=== PATIENT | female | born 1970 | race Caucasian/White ===

== ENCOUNTER 2020-08-27 21:16 | Inpatient (IN) | payer BC, OTHER ==
[~2020-08-27] VITALS: Ht 170 cm; Wt 127.7 kg
[2020-08-27] MEDS ORDERED: LABETALOL HCL 20 MG/4 ML VIAL IV ONE (22:00)
--- NOTE | 2020-08-27 22:08 | ED Headache ---
General Chief Complaint: Head/Cervical Problems Stated Complaint: HEADACHE/DIARRHEA Nursing Triage Note: PT AMBULATE TO ROOM 10 WITH C/O HEADACHE AND DIARRHEA STARTING AT 2015 TODAY. PT REPORTS THAT THE HEADACHE IS WHAT BROUGHT HER TO THE ED TONIGHT. Nursing Sepsis Screen: No Definite Risk Source: patient Exam Limitations: no limitations History of Present Illness Date Seen by Provider: Aug 27, 2020 Time Seen by Provider: 22:00 Initial Comments Patient is a 49-year-old female who presents to the emergency department today with a chief complaint of severe occipital headache as well as some diarrhea this evening. Patient states that she was going to the bathroom earlier this evening and had a sudden onset of occipital headache that she describes as the worst headache of her life. Patient states that it's not quite as bad now but it is still the worst headache she is ever had she rates it as "an 8". Patient doesn't usually have headaches. Patient doesn't usually have any diagnosed medical problems. She doesn't see doctors on a regular basis. She denies any problems with vision. Nothing makes the headache any better or worse. No hearing changes. No speech difficulties no strokelike symptoms. Patient denies chest pains or palpitations or shortness of breath. She denies any black or bloody stools. Patient thinks that she just ate something she shouldn't have and that caused the diarrhea. No recent illnesses, fevers, chills, cough congestion or Covid related exposures. All other review of systems reviewed and negative except as stated. Timing/Duration: 1-3 hours Severity/Quality: severe, pressure, sharp, throbbing Location: occipital Prior Headaches/Recent Trauma: no recent headache/trauma Associated Symptoms: denies symptoms Allergies and Home Medications Allergies Coded Allergies: No Allergy Information Available (Unverified , 06/22/15) Patient Home Medication List Home Medication List Reviewed: Yes Review of Systems Review of Systems Constitutional: see HPI Eyes: No Symptoms Reported Ears, Nose, Mouth, Throat: no symptoms reported Respiratory: no symptoms reported Cardiovascular: no symptoms reported Gastrointestinal: diarrhea Genitourinary: no symptoms reported : No Musculoskeletal: no symptoms reported Skin: no symptoms reported Psychiatric/Neurological: Anxiety All Other Systems Reviewed Negative Unless Noted: Yes Past Sxuzcgt-Yxlyui-Maaaxz Hx Patient Social History Alcohol Use: Occasionally Uses Recreational Drug Use: No Smoking Status: Never a Smoker 2nd Hand Smoke Exposure: No Recent Foreign Travel: No Contact w/Someone Who Travel: No Recent Infectious Disease Expo: No Recent Hopitalizations: No Physical Abuse: No Sexual Abuse: No Mistreated: No Fear: No Seasonal Allergies Seasonal Allergies: Yes Past Medical History Surgeries: Yes Hysterectomy Respiratory: No Cardiac: No Neurological: No Genitourinary: No Gastrointestinal: No Musculoskeletal: Yes (LEFT ORBITAL FX, LEFT LEG, LEFT COLLAR BONE) Fractures HEENT: No Cancer: No Psychosocial: No Integumentary: No Blood Disorders: No Physical Exam Vital Signs Vital Signs - First Documented 08/27/20 21:35 Temp 35.9 Pulse 99 Resp 18 B/P (MAP) 252/162 (192) O2 Delivery Room Air Capillary Refill : Less Than 3 Seconds Height, Weight, BMI Height: '" Weight: lbs. oz. kg; 43.00 BMI Method: General Appearance: WD/WN, moderate distress HEENT: PERRL/EOMI Neck: full range of motion Cardiovascular: regular rate, rhythm, no murmur Respiratory: lungs clear, normal breath sounds, no respiratory distress, no accessory muscle use Gastrointestinal: non tender, soft Extremities: non-tender, normal inspection, no pedal edema, normal capillary refill Psychiatric: alert, oriented x 3, other (anxious) Crainal Nerves: normal hearing, normal speech, PERRL Coordination/Gait: normal finger to nose Motor/Sensory: no motor deficit, no sensory deficit Skin: normal color, warm/dry Progress/Results/Core Measures Results/Orders Lab Results Laboratory Tests Test 08/27/20 22:00 Range/Units White Blood Count 9.2 4.3-11.0 10^3/uL Red Blood Count 5.20 H 3.80-5.11 10^6/uL Hemoglobin 14.1 11.5-16.0 g/dL Hematocrit 42 35-52 % Mean Corpuscular Volume 81 80-99 fL Mean Corpuscular Hemoglobin 27 25-34 pg Mean Corpuscular Hemoglobin Concent 33 32-36 g/dL Red Cell Distribution Width 13.5 10.0-14.5 % Platelet Count 210 130-400 10^3/uL Mean Platelet Volume 9.4 9.0-12.2 fL Immature Granulocyte % (Auto) 0 % Neutrophils (%) (Auto) 61 42-75 % Lymphocytes (%) (Auto) 28 12-44 % Monocytes (%) (Auto) 6 0-12 % Eosinophils (%) (Auto) 4 0-10 % Basophils (%) (Auto) 1 0-10 % Neutrophils # (Auto) 5.6 1.8-7.8 10^3/uL Lymphocytes # (Auto) 2.6 1.0-4.0 10^3/uL Monocytes # (Auto) 0.6 0.0-1.0 10^3/uL Eosinophils # (Auto) 0.3 0.0-0.3 10^3/uL Basophils # (Auto) 0.1 0.0-0.1 10^3/uL Immature Granulocyte # (Auto) 0.0 0.0-0.1 10^3/uL Sodium Level 138 135-145 MMOL/L Potassium Level 4.6 3.6-5.0 MMOL/L Chloride Level 101 98-107 MMOL/L Carbon Dioxide Level 26 21-32 MMOL/L Anion Gap 11 5-14 MMOL/L Blood Urea Nitrogen 16 7-18 MG/DL Creatinine 1.25 0.60-1.30 MG/DL Estimat Glomerular Filtration Rate 46 BUN/Creatinine Ratio 13 Glucose Level 270 H 70-105 MG/DL Calcium Level 9.6 8.5-10.1 MG/DL Corrected Calcium 9.4 8.5-10.1 MG/DL Total Bilirubin 0.5 0.1-1.0 MG/DL Aspartate Amino Transf (AST/SGOT) 19 5-34 U/L Alanine Aminotransferase (ALT/SGPT) 20 0-55 U/L Alkaline Phosphatase 80 40-136 U/L Total Creatine Kinase 95 29-168 U/L Creatine Kinase MB 1.0 <6.6 NG/ML Troponin I < 0.028 <0.028 NG/ML Total Protein 7.9 6.4-8.2 GM/DL Albumin 4.3 3.2-4.5 GM/DL Thyroid Stimulating Hormone (TSH) 3.56 0.35-4.94 UIU/ML My Orders Orders - QUEENIE KWOK MD Ed Iv/Invasive Line Start (08/27/20 21:53) Cbc With Automated Diff (08/27/20 21:53) Comprehensive Metabolic Panel (08/27/20 21:53) Ua Culture If Indicated (08/27/20 21:53) Ekg Tracing (08/27/20 21:53) Troponin I (08/27/20 21:53) Creatine Kinase (08/27/20 21:53) Creatine Kinase Mb (08/27/20 21:53) Chest 1 View, Ap/Pa Only (08/27/20 21:53) Ct Head Wo (08/27/20 21:53) Labetalol Injection (Normodyne Injection (08/27/20 22:00) Thyroid Stimulating Hormone (08/27/20 21:55) Nicardipine Drip (08/27/20 23:15) Medications Given in ED Current Medications Medications Dose Ordered Sig/Loli Route Start Time Stop Time Status Last Admin Dose Admin Labetalol HCl 10 mg ONCE ONCE IV 08/27/20 22:00 08/27/20 22:01 DC 08/27/20 22:03 10 MG Vital Signs/I&O 08/27/20 21:35 Temp 35.9 Pulse 99 Resp 18 B/P (MAP) 252/162 (192) O2 Delivery Room Air Blood Pressure Mean: 192 Progress Progress Note : Time: 22:15 Progress Note 49-year-old presents with a chief complaint of severe headache and diarrhea. Evaluation today includes a physical exam. The patient is noted to be extremely hypertensive at 260s over 140s. Patient is undergoing laboratory evaluation to include a CBC, Chem-12, cardiac enzyme profile, urinalysis, TSH, EKG chest x-ray and CT scan of the head without contrast. 2321 Patient's blood pressures down to 203/108, labs have been reviewed and are all within normal limits except for a blood sugar of 270. Chest x-ray shows normal mediastinal structures, no effusions or infiltrates. CT scan of the brain shows no acute findings. Patient will be admitted to the hospitalist service on a Cardene drip to the ICU. Initial ECG Impression Date: Aug 27, 2020 Initial ECG Impression Time: 21:59 Initial ECG Rate: 87 Initial ECG Rhythm: Normal Sinus Initial ECG Impression: Nonspecific Changes Comment left axis deviation; poor r wave progression Departure Impression Primary Impression: Hypertensive urgency, malignant Disposition: ADMITTED INPATIENT Condition: Stable Departure-Patient Inst. Referrals: ALLYSON DIAS DO (PCP) Primary Care Physician QUEENIE KWOK MD Aug 27, 2020 22:08
[2020-08-27 22:10] LABS: BASOPHILS # (AUTO) 0.1 10^3/uL (0.0-0.1); BASOPHILS % (AUTO) 1 % (0-10); EOSINOPHILS # (AUTO) 0.3 10^3/uL (0.0-0.3); EOSINOPHILS % (AUTO) 4 % (0-10); HEMATOCRIT 42 % (35-52); HEMOGLOBIN 14.1 g/dL (11.5-16.0); LYMPHOCYTES # (AUTO) 2.6 10^3/uL (1.0-4.0); LYMPHOCYTES % (AUTO) 28 % (12-44); MEAN CORPUSCULAR HEMOGLOBIN 27 pg (25-34); MEAN CORPUSCULAR HGB CONC 33 g/dL (32-36); MEAN CORPUSCULAR VOLUME 81 fL (80-99); MEAN PLATELET VOLUME 9.4 fL (9.0-12.2); MONOCYTES # (AUTO) 0.6 10^3/uL (0.0-1.0); MONOCYTES % (AUTO) 6 % (0-12); NEUTROPHILS # (AUTO) 5.6 10^3/uL (1.8-7.8); NEUTROPHILS % (AUTO) 61 % (42-75); PLATELET COUNT 210 10^3/uL (130-400); WHITE BLOOD COUNT 9.2 10^3/uL (4.3-11.0)
[2020-08-27 22:28] LABS: ALBUMIN 4.3 GM/DL (3.2-4.5); CHLORIDE 101 MMOL/L (98-107); POTASSIUM 4.6 MMOL/L (3.6-5.0); SODIUM 138 MMOL/L (135-145)
[2020-08-27 22:29] LABS: CALCIUM 9.6 MG/DL (8.5-10.1)
[2020-08-27 22:31] LABS: GLUCOSE 270 MG/DL (70-105); TOTAL PROTEIN 7.9 GM/DL (6.4-8.2)
[2020-08-27 22:32] LABS: BILIRUBIN,TOTAL 0.5 MG/DL (0.1-1.0); CARBON DIOXIDE 26 MMOL/L (21-32)
[2020-08-27 22:34] LABS: ALKALINE PHOSPHATASE 80 U/L (40-136); CREATININE SERUM 1.25 MG/DL (0.60-1.30); GFR ESTIMATED 46
[2020-08-27 22:35] LABS: BUN/CREATININE RATIO 13
[2020-08-27 22:37] LABS: ALANINE AMINOTRANSFERASE 20 U/L (0-55); CREATINE KINASE 95 U/L (29-168)
[2020-08-27] MEDS ORDERED: niCARdipine IV 50 MG in NS (IVPB) 230 ML IV SCH (23:15)
[2020-08-27] MEDS ORDERED: niCARdipine IV FOR DRIP 50 MG KIT ONE ×2 (23:17→23:21)
[2020-08-27] MEDS ORDERED: NS (IVPB) 250 ML ONE (23:18)
[2020-08-28] MEDS ORDERED: NS IV 1000 ML 1,000 ML ONE (00:30)
[2020-08-28] MEDS ORDERED: NS IV 1000 ML 1,000 ML IV SCH (01:00)
[2020-08-28 01:01] LABS: BILIRUBIN,URINE NEGATIVE (NEGATIVE); CLARITY,URINE CLEAR; COLOR,URINE YELLOW; GLUCOSE, URINE (UA) 3+ (NEGATIVE); KETONES,URINE NEGATIVE (NEGATIVE); LEUKOCYTE ESTERASE ,URINE NEGATIVE (NEGATIVE); NITRITE,URINE NEGATIVE (NEGATIVE); PROTEIN,URINE NEGATIVE (NEGATIVE)
[2020-08-28] MEDS: niCARdipine 50 MG/NS 250 ML IV DRIP IV SCH ×6 (01:08→19:22)
[2020-08-28 02:01] LABS: BACTERIA,URINE NEGATIVE /HPF
[2020-08-28] MEDS ORDERED: RT-ALBUTEROL INHALER HFA (VENTOLIN HFA) 18 GM IH PRN (02:30)
[2020-08-28 02:45] LABS: BASOPHILS # (AUTO) 0.1 10^3/uL (0.0-0.1); BASOPHILS % (AUTO) 1 % (0-10); EOSINOPHILS # (AUTO) 0.2 10^3/uL (0.0-0.3); EOSINOPHILS % (AUTO) 2 % (0-10); HEMATOCRIT 40 % (35-52); HEMOGLOBIN 13.2 g/dL (11.5-16.0); LYMPHOCYTES # (AUTO) 2.4 10^3/uL (1.0-4.0); LYMPHOCYTES % (AUTO) 26 % (12-44); MEAN CORPUSCULAR HEMOGLOBIN 27 pg (25-34); MEAN CORPUSCULAR HGB CONC 33 g/dL (32-36); MEAN CORPUSCULAR VOLUME 81 fL (80-99); MEAN PLATELET VOLUME 9.7 fL (9.0-12.2); MONOCYTES # (AUTO) 0.5 10^3/uL (0.0-1.0); MONOCYTES % (AUTO) 5 % (0-12); NEUTROPHILS # (AUTO) 6.3 10^3/uL (1.8-7.8); NEUTROPHILS % (AUTO) 66 % (42-75); PLATELET COUNT 221 10^3/uL (130-400); WHITE BLOOD COUNT 9.4 10^3/uL (4.3-11.0)
[2020-08-28 02:57] LABS: CHLORIDE 101 MMOL/L (98-107); POTASSIUM 4.1 MMOL/L (3.6-5.0); SODIUM 137 MMOL/L (135-145)
[2020-08-28 02:58] LABS: CALCIUM 9.1 MG/DL (8.5-10.1)
[2020-08-28 02:59] LABS: GLUCOSE 251 MG/DL (70-105)
[2020-08-28 03:00] LABS: CARBON DIOXIDE 24 MMOL/L (21-32)
[2020-08-28 03:02] LABS: PHOSPHORUS 3.6 MG/DL (2.3-4.7)
[2020-08-28 03:03] LABS: CREATININE SERUM 0.84 MG/DL (0.60-1.30); GFR ESTIMATED > 60
[2020-08-28 03:04] LABS: BUN/CREATININE RATIO 17
[2020-08-28 03:05] LABS: MAGNESIUM 1.8 MG/DL (1.6-2.4)
--- NOTE | 2020-08-28 04:19 | Pulmonary Consultation ---
History of Present Illness History of Present Illness Date Seen by Provider: Aug 28, 2020 Time Seen by Provider: 04:14 Date of Admission History of Present Illness Allergies and Home Medications Allergies Coded Allergies: No Known Drug Allergies (Unverified , 08/27/20) Past Ssfhplc-Eeyeoa-Gjjdas Hx Patient Social History Alcohol Use: Occasionally Uses Recreational Drug Use: No Smoking Status: Never a Smoker 2nd Hand Smoke Exposure: No Recent Foreign Travel: No Contact w/Someone Who Travel: No Recent Infectious Disease Expo: No Recent Hopitalizations: No Physical Abuse: No Sexual Abuse: No Mistreated: No Fear: No Immunizations Up To Date Date of Influenza Vaccine: Jun 07, 2021 Seasonal Allergies Seasonal Allergies: Yes Past Medical History Surgeries: Yes Hysterectomy Respiratory: No Cardiac: No Neurological: No Genitourinary: No Gastrointestinal: No Musculoskeletal: Yes (LEFT ORBITAL FX, LEFT LEG, LEFT COLLAR BONE) Fractures HEENT: No Cancer: No Psychosocial: No Integumentary: No Blood Disorders: No Review of Systems Time Seen by Provider: 04:19 Sepsis Event Evaluation Height, Weight, BMI Height: '" Weight: lbs. oz. kg; 44.98 BMI Method: Exam Exam Vital Signs Date Time Temp Pulse Resp B/P (MAP) Pulse Ox O2 Delivery O2 Flow Rate FiO2 08/28/20 03:15 89 22 150/98 (115) 96 Room Air 08/28/20 03:04 36.2 08/28/20 02:13 99 98 21 08/28/20 02:00 90 19 161/85 (110) 92 Room Air 08/28/20 01:45 92 18 140/84 (102) 95 Room Air 08/28/20 01:30 88 8 146/83 (104) 97 Room Air 08/28/20 01:15 96 20 146/76 (99) 96 Room Air 08/28/20 01:14 97 Room Air 08/28/20 01:00 92 18 176/97 (123) 98 Room Air 08/28/20 01:00 92 08/28/20 00:55 36.7 16 187/100 (129) 97 Room Air 08/28/20 00:45 94 17 184/107 97 Room Air 08/27/20 21:35 35.9 99 18 252/162 (192) Room Air I & O 08/28/20 06:59 Intake Total 150 ml Balance 150 ml Height & Weight Height: '" Weight: lbs. oz. kg; 44.98 BMI Method: Capillary Refill: Less Than 3 Seconds Gastrointestinal: non tender, soft Results Lab Laboratory Tests 08/27/20 22:00 08/28/20 02:36 Assessment/Plan Assessment/Plan HTN Emergency with PERKINS -Currently on cardene gtt -Add PO Lisinopril and Lopressor. Obesity with probable KARINA -Out pt testing DEVON LANDRY DO Aug 28, 2020 04:19
[2020-08-28] MEDS ORDERED: lisINopril 10 MG (PRINIVIL) TABLET ONE (04:36)
[2020-08-28] MEDS ORDERED: meTOprolol TARTRATE 25 MG (LOPRESSOR) TABLET ONE (04:37)
[2020-08-28] MEDS ORDERED: lisINopril 20 MG (PRINIVIL) TABLET ONE (04:39)
[2020-08-28] MEDS: meTOprolol TARTRATE 25 MG (LOPRESSOR) TABLET PO SCH ×2 (04:41→20:34)
[2020-08-28] MEDS: lisINopril 20 MG (PRINIVIL) TABLET PO SCH (04:43)
[2020-08-28] MEDS: inSUlin ASPART (NovoLOG) 1 UNIT/0.01 ML (CHARGE PER UNIT) SC SCH ×4 (05:35→20:34)
--- NOTE | 2020-08-28 06:25 | Diagnostic Imaging Report ---
PROCEDURE: CT head without contrast. TECHNIQUE: Multiple contiguous axial images were obtained through the brain without the use of intravenous contrast. Auto Exposure Controls were utilized during the CT exam to meet ALARA standards for radiation dose reduction. INDICATION: Headaches, diarrhea starting earlier today. EXAMINATION: CT brain without contrast, 08/27/2020 FINDINGS: Multiple axial images of the brain without contrast. There is no evidence for acute hemorrhage or infarct. There is no mass, mass effect, midline shift or hydrocephalus. The paranasal sinuses and mastoid air cells demonstrate no acute abnormality. IMPRESSION: No acute intracranial process. Findings agree with the preliminary report. Dictated by: Dictated on workstation # [id number]
[2020-08-28] MEDS: ACETAMINOPHEN 325 MG TABLET PO PRN ×3 (07:00→20:39)
[2020-08-28] MEDS ORDERED: IBUPROFEN 600 MG (MOTRIN) TAB PO PRN (07:00)
--- NOTE | 2020-08-28 07:12 | NUR ---
Report given that Cardiene drip was turned off at 0700 this morning.
--- NOTE | 2020-08-28 07:13 | Diagnostic Imaging Report ---
INDICATION: Hypertensive emergency EXAMINATION: Single view chest 08/27/2020 FINDINGS: Heart is unremarkable. Pulmonary vasculature is slightly prominent. There are increased interstitial changes in both lungs perhaps due to mild edema. No effusions or infiltrates. No pneumothorax. IMPRESSION: 1. Question mild pulmonary edema. Dictated by: Dictated on workstation # [id number]
--- NOTE | 2020-08-28 07:48 | Diagnostic Imaging Report ---
INDICATION: Hypertensive emergency. EXAMINATION: Chest from 08/28/2020. COMPARISON: 08/27/2020 FINDINGS: The cardiomediastinal silhouette is unremarkable. The pulmonary vasculature is within normal limits. The lungs and pleural spaces are clear. IMPRESSION: No evidence of an acute cardiopulmonary process. Dictated by: Dictated on workstation # [id number]
--- NOTE | 2020-08-28 08:58 | History & Physical-Hospitalist ---
History of Present Illness HPI/Chief Complaint CC: Headache with hypertensive emergency HPI: This is a 49yoWF who doesnt go to the doctor and hasnt for many years who presented to the ER with SOB and headache, found to have BP of 260/140, meeting criteria for Labetalol then started a Cardene drip. She has improved quite a bit but now has a new diagnosis of DM that she was not aware of having and she was running [address] Rosario did see her in consultation. Echocardiogram will be ordered along with the HgbA1C added to the labs and will need to monitor stability before discharge. Source: patient, RN/MD Exam Limitations: no limitations Date Seen 08/28/20 Time Seen by a Provider: 09:30 Attending Physician Namita Jane DO PCP No,Local Physician Referring Physician Date of Admission Aug 27, 2020 at 23:15 Home Medications & Allergies Home Medications Reviewed patient Home Medication Reconciliation performed by pharmacy medication reconciliations master motorcycle technician and/or nursing. Patients Allergies have been reviewed. Allergies Allergies Coded Allergies No Known Drug Allergies (Unverified08/27/20) Past Vvfutcr-Ekzccw-Owvxde Hx Past Med/Social Hx: Reviewed Nursing Past Med/Soc Hx, Reviewed and Corrections made Patient Social History Marrital Status: Employed/Student: employed ([employer]) Alcohol Use: Denies Use Recreational Drug Use: No Smoking Status: Never a Smoker 2nd Hand Smoke Exposure: No Recent Foreign Travel: No Contact w/other who traveled: No Recent Hopitalizations: No Recent Infectious Disease Expo: No Immunizations Up To Date Date of Influenza Vaccine: Jun 07, 2021 Seasonal Allergies Seasonal Allergies: Yes Past Medical History Surgeries: Hysterectomy Musculoskeletal: Fractures History of Blood Disorders: No Review of Systems Constitutional: see HPI, malaise, weakness Psychiatric/Neurological: Headache Physical Exam Physical Exam Vital Signs Vital Signs - First Documented 08/27/20 08/28/20 08/28/20 21:35 00:45 02:13 Temp 35.9 Pulse 99 Resp 18 B/P (MAP) 252/162 (192) Pulse Ox 97 O2 Delivery Room Air FiO2 21 Capillary Refill : Less Than 3 Seconds Height, Weight, BMI Height: '" Weight: lbs. oz. kg; 44.98 BMI Method: General Appearance: No Apparent Distress, Obese Eyes: Right Eye Normal Inspection, Right Eye PERRL HEENT: PERRL/EOMI, Normal ENT Inspection, Pharynx Normal, Moist Mucous Memb ranes Neck: Full Range of Motion, Normal Inspection, Non Tender Respiratory: Chest Non Tender, Lungs Clear, Normal Breath Sounds, No Accessory Muscle Use, No Respiratory Distress Cardiovascular: Regular Rate, Rhythm, No Edema, No Gallop, No JVD, No Murmur, Normal Peripheral Pulses Gastrointestinal: Normal Bowel Sounds, No Organomegaly, No Pulsatile Mass, Non Tender, Soft Back: Normal Inspection, No CVA Tenderness, No Vertebral Tenderness Extremity: Normal Capillary Refill, Normal Inspection, Normal Range of Motion, Non Tender, No Calf Tenderness, No Pedal Edema Neurologic/Psychiatric: Alert, Oriented x3, No Motor/Sensory Deficits, Normal Mood/Affect Skin: Normal Color, Warm/Dry Lymphatic: No Adenopathy Results Results/Procedures Labs Laboratory Tests 08/27/20 22:00 08/28/20 02:36 Patient resulted labs reviewed. Assessment/Plan Admission Diagnosis Assessment: HTN emergency Hyperglycemia Obesity Plan: Monitor BP HGA1C Admission Status: Inpatient Order (span 2 midnights) Reason for Inpatient Admission: HTN emergency requiring Cardene IVinfusion Diagnosis/Problems Diagnosis/Problems (1) Hypertensive urgency, malignant Status: Acute (2) Hyperglycemia (3) Obesity Clinical Quality Measures DVT/VTE Risk/Contraindication: Risk Factor Score Per Nursin RFS Level Per Nursing on Admit: 4+=Very High NAMITA JANE DO Aug 28, 2020 08:58
[2020-08-28] MEDS ORDERED: ZINC50TA58 PO (13:52)
[2020-08-28] MEDS ORDERED: CETI10TA49 PO (13:52)
[2020-08-28] MEDS ORDERED: ASCO-262 PO (13:52)
[2020-08-28] MEDS ORDERED: MULT-1136 PO (13:52)
[2020-08-28] MEDS ORDERED: NAPR220T66 PO (13:52)
--- NOTE | 2020-08-28 13:52 | NUR ---
SPOKE WITH THE PT TO COMPLETE THE MED REC PT DENIES TAKING ANY PRESCRIPTION MEDICATIONS OTC MEDS: ZYRTEC ALEVE ZINC MTV VIT C
--- NOTE | 2020-08-28 15:14 | NUR ---
RD ASSESSMENT PMHx: HTN; PT INTERACTION: Pt was awake and pleasant during nutrition assessment. Pt states current appetite is "so-so." Note pt has refused 1meal, per chart review. Pt states following a regular diet at home, and has no issues with chewing/swallowing food. Pt states some recent issues with nausea and diarrhea, and that her last BM was 08/27. Note pt not currently on bowel regimen per chart review. Pt states no recent wt changes. Note unable to determine recent wt hx, per chart review. Est. kcal needs: 1103-8850 kcal | 15-18 kcal/kg Est. Pro needs: 104-130 g Pro | 0.8-1.0 g Pro/kg PES STATEMENT: Inadequate oral intake (NI-2.1) related to loss of appetite, nausea, and diarrhea, as evidenced by pt interview, and chart review. INTERVENTION: Continue with current diet order of CHO 60g/m 1snack diet, with modifier of 2000mg Na restriction. Pt may benefit from nutrition supplementation if PO intake declines. Will continue to follow and reassess as pt needs, intake, and status change. Jhonny DUPONT, MS RD LD [phone] cell
[2020-08-29 03:15] LABS: BASOPHILS % (AUTO) 0 % (0-10); EOSINOPHILS # (AUTO) 0.3 10^3/uL (0.0-0.3); EOSINOPHILS % (AUTO) 3 % (0-10); HEMATOCRIT 41 % (35-52); HEMOGLOBIN 13.5 g/dL (11.5-16.0); LYMPHOCYTES # (AUTO) 3.2 10^3/uL (1.0-4.0); LYMPHOCYTES % (AUTO) 34 % (12-44); MEAN CORPUSCULAR HEMOGLOBIN 27 pg (25-34); MEAN CORPUSCULAR HGB CONC 33 g/dL (32-36); MEAN CORPUSCULAR VOLUME 82 fL (80-99); MEAN PLATELET VOLUME 9.7 fL (9.0-12.2); MONOCYTES # (AUTO) 0.6 10^3/uL (0.0-1.0); MONOCYTES % (AUTO) 7 % (0-12); NEUTROPHILS # (AUTO) 5.3 10^3/uL (1.8-7.8); NEUTROPHILS % (AUTO) 56 % (42-75); PLATELET COUNT 231 10^3/uL (130-400); WHITE BLOOD COUNT 9.4 10^3/uL (4.3-11.0)
[2020-08-29 03:29] LABS: CHLORIDE 102 MMOL/L (98-107); POTASSIUM 3.9 MMOL/L (3.6-5.0); SODIUM 135 MMOL/L (135-145)
[2020-08-29 03:31] LABS: GLUCOSE 203 MG/DL (70-105)
[2020-08-29 03:32] LABS: CARBON DIOXIDE 22 MMOL/L (21-32)
[2020-08-29 03:34] LABS: PHOSPHORUS 4.6 MG/DL (2.3-4.7)
[2020-08-29 03:35] LABS: GFR ESTIMATED > 60
[2020-08-29 03:36] LABS: BUN/CREATININE RATIO 22
[2020-08-29 03:37] LABS: MAGNESIUM 2.1 MG/DL (1.6-2.4)
--- NOTE | 2020-08-29 05:04 | Pulmonary Progress Note ---
Subjective Time Seen by a Provider: 05:03 Subjective/Events-last exam No complications noted. Sepsis Event Evaluation Height, Weight, BMI Height: '" Weight: lbs. oz. kg; 44.98 BMI Method: Exam Exam Vital Signs Date Time Temp Pulse Resp B/P (MAP) Pulse Ox O2 Delivery O2 Flow Rate FiO2 08/29/20 03:53 36.6 68 18 128/77 (94) 98 Room Air 08/29/20 03:00 116/72 (87) 08/29/20 02:00 115/67 (83) 08/29/20 01:00 114/68 (83) 08/28/20 23:43 36.7 84 18 113/73 (86) 96 Room Air 08/28/20 22:00 121/74 (90) 08/28/20 21:00 116/66 (83) 08/28/20 20:44 97 Room Air 08/28/20 20:00 121/60 (80) 08/28/20 19:33 36.0 77 18 124/75 (91) 96 Room Air 08/28/20 16:00 78 139/94 (109) 96 Room Air 08/28/20 15:14 36.1 08/28/20 15:00 76 125/84 (98) 92 Room Air 08/28/20 14:00 78 10 137/75 (95) 96 Room Air 08/28/20 13:00 75 17 133/73 (93) 96 Room Air 08/28/20 12:51 75 08/28/20 12:39 35.9 08/28/20 12:00 72 12 124/76 (92) 97 Room Air 08/28/20 11:00 73 10 131/82 (98) 95 Room Air 08/28/20 10:00 72 18 123/68 (86) 97 Room Air 08/28/20 09:00 69 16 114/74 (87) 92 Room Air 08/28/20 08:19 36.4 08/28/20 08:00 73 10 126/78 (94) 96 Room Air 08/28/20 07:04 97 Room Air 08/28/20 07:00 85 11 159/104 (122) 98 Room Air 08/28/20 06:50 81 08/28/20 06:00 84 28 134/86 (102) 97 Room Air I & O 08/29/20 07:00 Intake Total 1445 ml Output Total 1175 ml Balance 270 ml Height & Weight Height: '" Weight: lbs. oz. kg; 44.98 BMI Method: General Appearance: No Apparent Distress, Obese HEENT: PERRL/EOMI, Normal ENT Inspection, Pharynx Normal, Moist Mucous Membranes Neck: Full Range of Motion, Normal Inspection, Non Tender Respiratory: Chest Non Tender, Lungs Clear, Normal Breath Sounds, No Accessory Muscle Use, No Respiratory Distress Cardiovascular: Regular Rate, Rhythm, No Edema, No Gallop, No JVD, No Murmur, Normal Peripheral Pulses Capillary Refill: Less Than 3 Seconds Gastrointestinal: non tender, soft Extremity: Normal Capillary Refill, Normal Inspection, Normal Range of Motion, Non Tender, No Calf Tenderness, No Pedal Edema Neurologic/Psychiatric: Alert, Oriented x3, No Motor/Sensory Deficits, Normal Mood/Affect Skin: Normal Color, Warm/Dry Lymphatic: No Adenopathy Results Lab Laboratory Tests 08/27/20 22:00 08/28/20 02:36 08/29/20 02:31 Assessment/Plan Assessment/Plan HTN Emergency with PERKINS -Currently off cardene gtt - PO Lisinopril and Lopressor. Obesity with probable KARINA -Out pt testing Possible home vs 4th floor today. DEVON LANDRY DO Aug 29, 2020 05:04
[2020-08-29] MEDS: niCARdipine 50 MG/NS 250 ML IV DRIP IV SCH ×2 (05:28)
[2020-08-29] MEDS: inSUlin ASPART (NovoLOG) 1 UNIT/0.01 ML (CHARGE PER UNIT) SC SCH ×2 (05:31→11:15)
[2020-08-29] MEDS: meTOprolol TARTRATE 25 MG (LOPRESSOR) TABLET PO SCH (08:08)
[2020-08-29] MEDS: lisINopril 20 MG (PRINIVIL) TABLET PO SCH (08:09)
[2020-08-29] MEDS ORDERED: amLODIPine 5 MG (NORVASC) TAB PO NR (10:00)
[2020-08-29] MEDS ORDERED: METO-333 PO (11:03)
[2020-08-29] MEDS ORDERED: LISI-552 PO (11:03)
[2020-08-29] MEDS ORDERED: AMLO-250 PO (11:03)
--- NOTE | 2020-08-29 11:04 | Discharge Summary ---
Diagnosis/Chief Complaint Date of Admission Aug 27, 2020 at 23:15 Date of Discharge Discharge Date: Aug 29, 2020 Discharge Diagnosis HTN urgency New onset DM Obesity Discharge Summary Discharge Physical Examination Allergies: Coded Allergies: No Known Drug Allergies (Unverified , 08/27/20) Vitals & I&Os Vital Signs Date Time Temp Pulse Resp B/P (MAP) Pulse Ox O2 Delivery O2 Flow Rate FiO2 08/29/20 12:20 36.6 63 20 130/85 98 Room Air 08/28/20 02:13 21 General Appearance: Alert, Oriented X3, Cooperative Respiratory: Clear to Auscultation Cardiovascular: Regular Rate Neuro: Normal Gait, Normal Speech, Strength at / X4 Ext Psych/Mental Status: Mental Status NL Hospital Course Was the Problem List Reviewed?: Yes Hospital course: Pt had an uneventful and short hospital course, she was admitted for hypert ensive emergency with hyperglycemia, Pt was placed on a Cardene drip for out of control BP and insulin regimen for out of control DM with HgbA1C that resulted at 8.3. Overall Pt felt much improved, echocardiogram did not show any type of abnormality, labs returned back to normal and she was ready fo discharge and will follow-up with me to establish care next week. She will go home on Amlodipine, Lisinopril and Metoprolol. Labs (last 24 hrs) Laboratory Tests 08/27/20 22:00: White Blood Count 9.2, Red Blood Count 5.20H, Hemoglobin 14.1, Hematocrit 42, Mean Corpuscular Volume 81, Mean Corpuscular Hemoglobin 27, Mean Corpuscular Hemoglobin Concent 33, Red Cell Distribution Width 13.5, Platelet Count 210, Mean Platelet Volume 9.4, Immature Granulocyte % (Auto) 0, Neutrophils (%) (Auto) 61, Lymphocytes (%) (Auto) 28, Monocytes (%) (Auto) 6, Eosinophils (%) (Auto) 4, Basophils (%) (Auto) 1, Neutrophils # (Auto) 5.6, Lymphocytes # (Auto) 2.6, Monocytes # (Auto) 0.6, Eosinophils # (Auto) 0.3, Basophils # (Auto) 0.1, Immature Granulocyte # (Auto) 0.0, Sodium Level 138, Potassium Level 4.6, Chloride Level 101, Carbon Dioxide Level 26, Anion Gap 11, Blood Urea Nitrogen 16, Creatinine 1.25, Estimat Glomerular Filtration Rate 46, BUN/Creatinine Ratio 13, Glucose Level 270H, Calcium Level 9.6, Corrected Calcium 9.4, Total Bilirubin 0.5, Aspartate Amino Transf (AST/SGOT) 19, Alanine Aminotransferase (ALT/SGPT) 20, Alkaline Phosphatase 80, Total Creatine Kinase 95, Creatine Kinase MB 1.0, Troponin I < 0.028, Total Protein 7.9, Albumin 4.3, Thyroid Stimulating Hormone (TSH) 3.56 08/28/20 00:45: Urine Color YELLOW, Urine Clarity CLEAR, Urine pH 7.0, Urine Specific [place] 1.015L, Urine Protein NEGATIVE, Urine Glucose (UA) 3+H, Urine Ketones NEGATIVE, Urine Nitrite NEGATIVE, Urine Bilirubin NEGATIVE, Urine Urobilinogen 0.2, Urine Leukocyte Esterase NEGATIVE, Urine RBC (Auto) NEGATIVE, Urine RBC NONE, Urine WBC NONE, Urine Squamous Epithelial Cells 2-5, Urine Crystals NONE, Urine Bacteria NEGATIVE, Urine Casts NONE, Urine Mucus NEGATIVE, Urine Culture Indicated NO 08/28/20 02:36: White Blood Count 9.4, Red Blood Count 4.95, Hemoglobin 13.2, Hematocrit 40, Mean Corpuscular Volume 81, Mean Corpuscular Hemoglobin 27, Mean Corpuscular Hemoglobin Concent 33, Red Cell Distribution Width 13.5, Platelet Count 221, Mean Platelet Volume 9.7, Immature Granulocyte % (Auto) 0, Neutrophils (%) (Auto) 66, Lymphocytes (%) (Auto) 26, Monocytes (%) (Auto) 5, Eosinophils (%) (Auto) 2, Basophils (%) (Auto) 1, Neutrophils # (Auto) 6.3, Lymphocytes # (Auto) 2.4, Monocytes # (Auto) 0.5, Eosinophils # (Auto) 0.2, Basophils # (Auto) 0.1, Immature Granulocyte # (Auto) 0.0, Sodium Level 137, Potassium Level 4.1, Chloride Level 101, Carbon Dioxide Level 24, Anion Gap 12, Blood Urea Nitrogen 14, Creatinine 0.84, Estimat Glomerular Filtration Rate > 60, BUN/Creatinine Ratio 17, Glucose Level 251H, Calcium Level 9.1, Mean Blood Glucose 192H, Hemoglobin A1c 8.3H, Phosphorus Level 3.6, Magnesium Level 1.8 08/28/20 05:31: Glucometer 219H 08/28/20 10:22: Glucometer 234H 08/28/20 15:15: Glucometer 104 08/28/20 20:30: Glucometer 297H 08/29/20 02:31: White Blood Count 9.4, Red Blood Count 5.00, Hemoglobin 13.5, Hematocrit 41, Mean Corpuscular Volume 82, Mean Corpuscular Hemoglobin 27, Mean Corpuscular Hemoglobin Concent 33, Red Cell Distribution Width 13.8, Platelet Count 231, Mean Platelet Volume 9.7, Immature Granulocyte % (Auto) 0, Neutrophils (%) (Auto) 56, Lymphocytes (%) (Auto) 34, Monocytes (%) (Auto) 7, Eosinophils (%) (Auto) 3, Basophils (%) (Auto) 0, Neutrophils # (Auto) 5.3, Lymphocytes # (Auto) 3.2, Monocytes # (Auto) 0.6, Eosinophils # (Auto) 0.3, Basophils # (Auto) 0.0, Immature Granulocyte # (Auto) 0.0, Sodium Level 135, Potassium Level 3.9, Chloride Level 102, Carbon Dioxide Level 22, Anion Gap 11, Blood Urea Nitrogen 20H, Creatinine 0.90, Estimat Glomerular Filtration Rate > 60, BUN/Creatinine Ratio 22, Glucose Level 203H, Calcium Level 9.0, Phosphorus Level 4.6, Magnesium Level 2.1 08/29/20 05:09: Glucometer 186H 08/29/20 11:07: Glucometer 202H Microbiology 08/28/20 MRSA Screen - Final, Complete MRSA not isolated Pending Labs Microbiology Date/Time Source Procedure Growth Status 08/28/20 01:09 Nasal MRSA Screen - Final MRSA not isolated Complete Laboratory Tests 08/27/20 22:00: White Blood Count 9.2, Red Blood Count 5.20, Hemoglobin 14.1, Hematocrit 42, Mean Corpuscular Volume 81, Mean Corpuscular Hemoglobin 27, Mean Corpuscular Hemoglobin Concent 33, Red Cell Distribution Width 13.5, Platelet Count 210, Mean Platelet Volume 9.4, Immature Granulocyte % (Auto) 0, Neutrophils (%) (Auto) 61, Lymphocytes (%) (Auto) 28, Monocytes (%) (Auto) 6, Eosinophils (%) (Auto) 4, Basophils (%) (Auto) 1, Neutrophils # (Auto) 5.6, Lymphocytes # (Auto) 2.6, Monocytes # (Auto) 0.6, Eosinophils # (Auto) 0.3, Basophils # (Auto) 0.1, Immature Granulocyte # (Auto) 0.0, Sodium Level 138, Potassium Level 4.6, Chloride Level 101, Carbon Dioxide Level 26, Anion Gap 11, Blood Urea Nitrogen 16, Creatinine 1.25, Estimat Glomerular Filtration Rate 46, BUN/Creatinine Ratio 13, Glucose Level 270, Calcium Level 9.6, Corrected Calcium 9.4, Total Bilirubin 0.5, Aspartate Amino Transf (AST/SGOT) 19, Alanine Aminotransferase (ALT/SGPT) 20, Alkaline Phosphatase 80, Total Creatine Kinase 95, Creatine Kinase MB 1.0, Troponin I < 0.028, Total Protein 7.9, Albumin 4.3, Thyroid Stimulating Hormone (TSH) 3.56 08/28/20 00:45: Urine Color YELLOW, Urine Clarity CLEAR, Urine pH 7.0, Urine Specific [place] 1.015, Urine Protein NEGATIVE, Urine Glucose (UA) 3+, Urine Ketones NEGATIVE, Urine Nitrite NEGATIVE, Urine Bilirubin NEGATIVE, Urine Urobilinogen 0.2, Urine Leukocyte Esterase NEGATIVE, Urine RBC (Auto) NEGATIVE, Urine RBC NONE, Urine WBC NONE, Urine Squamous Epithelial Cells 2-5, Urine Crystals NONE, Urine Bacteria NEGATIVE, Urine Casts NONE, Urine Mucus NEGATIVE, Urine Culture Indicated NO 08/28/20 02:36: White Blood Count 9.4, Red Blood Count 4.95, Hemoglobin 13.2, Hematocrit 40, Mean Corpuscular Volume 81, Mean Corpuscular Hemoglobin 27, Mean Corpuscular Hemoglobin Concent 33, Red Cell Distribution Width 13.5, Platelet Count 221, Mean Platelet Volume 9.7, Immature Granulocyte % (Auto) 0, Neutrophils (%) (Auto) 66, Lymphocytes (%) (Auto) 26, Monocytes (%) (Auto) 5, Eosinophils (%) (Auto) 2, Basophils (%) (Auto) 1, Neutrophils # (Auto) 6.3, Lymphocytes # (Auto) 2.4, Monocytes # (Auto) 0.5, Eosinophils # (Auto) 0.2, Basophils # (Auto) 0.1, Immature Granulocyte # (Auto) 0.0, Sodium Level 137, Potassium Level 4.1, Chloride Level 101, Carbon Dioxide Level 24, Anion Gap 12, Blood Urea Nitrogen 14, Creatinine 0.84, Estimat Glomerular Filtration Rate > 60, BUN/Creatinine Ratio 17, Glucose Level 251, Calcium Level 9.1, Mean Blood Glucose 192, Hemoglobin A1c 8.3, Phosphorus Level 3.6, Magnesium Level 1.8 08/28/20 05:31: Glucometer 219 08/28/20 10:22: Glucometer 234 08/28/20 15:15: Glucometer 104 08/28/20 20:30: Glucometer 297 08/29/20 02:31: White Blood Count 9.4, Red Blood Count 5.00, Hemoglobin 13.5, Hematocrit 41, Mean Corpuscular Volume 82, Mean Corpuscular Hemoglobin 27, Mean Corpuscular Hemoglobin Concent 33, Red Cell Distribution Width 13.8, Platelet Count 231, Mean Platelet Volume 9.7, Immature Granulocyte % (Auto) 0, Neutrophils (%) (Auto) 56, Lymphocytes (%) (Auto) 34, Monocytes (%) (Auto) 7, Eosinophils (%) (Auto) 3, Basophils (%) (Auto) 0, Neutrophils # (Auto) 5.3, Lymphocytes # (Auto) 3.2, Monocytes # (Auto) 0.6, Eosinophils # (Auto) 0.3, Basophils # (Auto) 0.0, Immature Granulocyte # (Auto) 0.0, Sodium Level 135, Potassium Level 3.9, Chloride Level 102, Carbon Dioxide Level 22, Anion Gap 11, Blood Urea Nitrogen 20, Creatinine 0.90, Estimat Glomerular Filtration Rate > 60, BUN/Creatinine Ratio 22, Glucose Level 203, Calcium Level 9.0, Phosphorus Level 4.6, Magnesium Level 2.1 08/29/20 05:09: Glucometer 186 08/29/20 11:07: Glucometer 202 Discharge Home Medications: Active Scripts Active Lisinopril 20 Mg Tablet 10 Mg PO DAILY Amlodipine Besylate 5 Mg Tablet 5 Mg PO DAILY Metoprolol Tartrate 25 Mg Tablet 25 Mg PO BID Reported Multivitamin 1 Each Tablet 1 Each PO DAILY Zyrtec (Cetirizine HCl) 10 Mg Tablet 10 Mg PO DAILY PRN Instructions to patient/family Please see electronic discharge instructions given to patient. Diagnosis/Problems Diagnosis/Problems (1) Hypertensive urgency, malignant Status: Acute (2) Hyperglycemia (3) Obesity Clinical Quality Measures DVT/VTE Risk/Contraindication: Risk Factor Score Per Nursin RFS Level Per Nursing on Admit: 4+=Very High JORDAN DIAMOND DO Aug 29, 2020 11:04
[2020-08-29 12:20] VITALS: BP 130/85
[2020-08-30] MEDS ORDERED: amLODIPine 5 MG (NORVASC) TAB PO SCH (09:00)
== END 2020-08-29 12:20 | disposition home or self-care (01) | DRG 305 ==
LOC: EDUNIT# 21:16 → ER 21:17 → ICU 23:15 → CSD 08-28 19:05
PROVIDERS: ADMIT Internal Medicine; ATTEND Internal Medicine
DX: I16.1 Hypertensive emergency (principal); Z68.41 Body mass index [BMI] 40.0-44.9, adult; I10 Essential (primary) hypertension; E11.65 Type 2 diabetes mellitus with hyperglycemia; E66.9 Obesity, unspecified
CPT/HCPCS: 36415; 70450; 71045; 80048; 80053; 81000; 82550; 82553; 82962; 83036; 83735; 84100; 84443; 84484; 85025; 87081; 93005; 93306

== ENCOUNTER → 2021-07-14 | Outpatient (CLI) | payer BC ==
[~2021-07-14] MED LIST: AMLO-250 PO; ASCO-262 PO; CETI10TA49 PO; LISI20TA26 PO; METO-333 PO; MULT-1136 PO; NAPR220T66 PO; ZINC50TA58 PO
--- NOTE | 2021-07-14 15:24 | Diagnostic Imaging Report ---
PROCEDURE: CT head without contrast. TECHNIQUE: Multiple contiguous axial images were obtained through the brain without the use of intravenous contrast. Auto Exposure Controls were utilized during the CT exam to meet ALARA standards for radiation dose reduction. INDICATION: Fall. Altered level of consciousness. Bruising around left eye. COMPARISON: Prior CT study from August 27, 2020. FINDINGS: There are no CT findings of acute intracranial hemorrhage. There is no evidence of an abnormal extra-axial collection. There is no intracranial mass effect or shift. There is no hydrocephalus. There are no findings of territorial loss of mancini-white differentiation or evidence of vasogenic edema. The basilar cisterns are patent. The posterior fossa demonstrates no acute process There is no acute calvarial fracture evident. The mastoids are clear. There is some mucosal thickening and fluid in the left maxillary sinus and left anterior ethmoids. The intraorbital contents appear unremarkable. There is mild left periorbital preseptal soft tissue swelling. There is a small hematoma along the lateral aspect of the left orbital roof. IMPRESSION: 1. Left periorbital preseptal soft tissue swelling and subcutaneous hematoma without underlying fracture. Intraorbital contents are unremarkable. 2. No findings of intracranial hemorrhage or of an acute intracranial abnormality. 3. No calvarial fracture. Dictated by: Dictated on workstation # [id number]
== END ==
LOC: RAD 14:50
PROVIDERS: ATTEND Nurse Practitioner Family
DX: S06.0X1A Concussion with loss of consciousness of 30 minutes or less, initial encounter (principal); W19.XXXA Unspecified fall, initial encounter
CPT/HCPCS: 70450

== ENCOUNTER 2021-08-02 22:33 | Emergency (ER) | payer BC ==
[~2021-08-02] VITALS: Ht 170 cm; Wt 109.0 kg
[2021-08-02 22:38] VITALS: BP 136/94
[2021-08-02] MEDS ORDERED: DULO60CA59 (22:45)
--- NOTE | 2021-08-02 22:55 | ED Fall/Injury ---
General Chief Complaint: Laceration Stated Complaint: HEAD LAC Nursing Triage Note: fall while getting out of car, posterior head laceration. denies loc. Source: patient Exam Limitations: no limitations History of Present Illness Date Seen by Provider: Aug 02, 2021 Time Seen by Provider: 22:36 Initial Comments StrikingThe patient reports the ER with her significant other chief complaint that just before arrival she was walking slipped and fell backwards back of her head. No loss of consciousness nausea vomiting. She is not on blood thinners. She has not had a tetanus vaccine for greater than 10 years. No other significant medical history. Allergies and Home Medications Allergies Coded Allergies: No Known Drug Allergies (Unverified , 08/27/20) Patient Home Medication List Home Medication List Reviewed: Yes Amlodipine Besylate (Amlodipine Besylate) 5 Mg Tablet, 5 MG PO DAILY Prescribed by: JORDAN DIAMOND on 08/29/20 1103 Cetirizine HCl (Zyrtec) 10 Mg Tablet, 10 MG PO DAILY PRN for SEASONAL ALLERGIES, (Reported) Entered as Reported by: BARBARA BARRERA on 08/28/20 1352 Duloxetine HCl (Duloxetine HCl) 60 Mg Capsule.dr (Reported) Entered as Reported by: IKAH EDGE on 08/02/21 2245 Last Action: New Order Lisinopril (Lisinopril) 20 Mg Tablet, 10 MG PO DAILY Prescribed by: JORDAN DIAMOND on 08/29/20 1103 Metoprolol Tartrate (Metoprolol Tartrate) 25 Mg Tablet, 25 MG PO BID Prescribed by: JORDAN DIAMOND on 08/29/20 1103 Multivitamin (Multivitamin) 1 Each Tablet, 1 EACH PO DAILY, (Reported) Entered as Reported by: BARBARA BARRERA on 08/28/20 1352 Review of Systems Review of Systems Constitutional: No chills, No diaphoresis Eyes: Denies Blindness, Denies Drainage Ears, Nose, Mouth, Throat: denies ear pain, denies ear discharge Respiratory: No cough, No phlegm Cardiovascular: No chest pain, No palpitations Gastrointestinal: No abdominal pain, No nausea, No vomiting Musculoskeletal: No back pain, No joint pain All Other Systems Reviewed Negative Unless Noted: Yes Past [id number]-Hhbphg Hx Patient Social History Tobacco Use?: No Substance use?: No Alcohol Use?: Yes Alcohol Frequency: Once in a while Pt feels they are or have been: No Immunizations Up To Date First/Initial COVID19 Vaccinat: 05/14 Second COVID19 Vaccination Isaiah: 06/13 COVID19 Vaccine De[employer]red[employer]: myra Seasonal Allergies Seasonal Allergies: Yes Past Medical History Surgery/Hospitalization HX: htn, hysterectomy Surgeries: Yes Hysterectomy Respiratory: No Cardiac: No Neurological: No Genitourinary: No Gastrointestinal: No Musculoskeletal: Yes (LEFT ORBITAL FX, LEFT LEG, LEFT COLLAR BONE) Fractures HEENT: No Cancer: No Psychosocial: No Integumentary: No Blood Disorders: No Physical Exam Vital Signs Vital Signs - First Documented 08/02/21 22:38 Temp 36.4 Pulse 72 Resp 16 B/P (MAP) 136/94 (108) Pulse Ox 99 O2 Delivery Room Air Capillary Refill : Less Than 3 Seconds Height, Weight, BMI Height: '" Weight: lbs. oz. kg; 37.00 BMI Method: General Appearance: WD/WN, no apparent distress HEENT: PERRL/EOMI, normal ENT inspection, TMs normal, pharynx normal, other (4 cm linear laceration at the crown of the head, hemostatic) Neck: non-tender, full range of motion, supple, normal inspection Cardiovascular: normal peripheral pulses, regular rate, rhythm Respiratory: lungs clear, normal breath sounds, no respiratory distress, no accessory muscle use Peripheral Pulses: 2+ Radial Pulses (R), 2+ Radial Pulses (L) Back: normal inspection, no vertebral tenderness Neurologic/Psychiatric: professor of sport management II-XII nml as tested, no motor/sensory deficits, alert, normal mood/affect, oriented x 3 Procedures/Interventions Wound Location: Scalp Other Wound Location [place], occipital scalp Wound Length (cm): 6 Wound's Depth, Shape: linear, bone Wound Explored: no foreign body removed Irrigated w/ Saline (ccs): 150 Betadine Prep?: Yes (Chlorhexidine) Anesthesia: 1% Lidocaine Volume Anesthetic (ccs): 8 Wound Debrided: minimal Staple Repair: Stapler 35W Number of Sutures: 6 Layer Closure?: 1 Progress/Results/Core Measures Results/Orders My Orders Orders - FELICIA BERGER Dipht,Pertuss(Acell),Tet Adult (Boostrix (08/02/21 23:00) Vital Signs/I&O 08/02/21 22:38 Temp 36.4 Pulse 72 Resp 16 B/P (MAP) 136/94 (108) Pulse Ox 99 O2 Delivery Room Air Blood Pressure Mean: 108 Progress Progress Note : Time: 22:53 Progress Note Neurologically intact. Plan to clean the wound give her a tetanus vaccine and infiltrated with lidocaine and closed with ofelia. After discussing risks, benefits and alternatives to imaging the patient has elected to pursue observation at home with return precautions Departure Impression Primary Impression: Fall Qualified Codes: W19.XXXA - Unspecified fall, initial encounter Additional Impressions: Occipital scalp laceration Qualified Codes: S01.01XA - Laceration without foreign body of scalp, initial encounter Concussion Qualified Codes: S06.0X0A - Concussion without loss of consciousness, initial encounter Disposition: 01 HOME, SELF-CARE Condition: Stable Departure-Patient Inst. Decision time for Depature: 23:05 Referrals: JORDAN DIAMOND DO (PCP/Family) Primary Care Physician Patient Instructions: Laceration Repair With Ofelia (DC), Concussion, Adult ED Add. Discharge Instructions: Keep the wound clean with regular soap and water or shampoo. Do not use hydrogen peroxide, alcohol, iodine or chlorhexidine as this will delay wound healing. Return to the ER in 7 to 10 days to have the ofelia removed no additional charge. Return to the ER or your primary care doctor sooner if you are noticing increasing pain, redness, swelling, discharge or fever. Tylenol or ibuprofen as necessary for pain. Ice pack applied directly to the wound for swelling and pain for the first 1 to 2 days. All discharge instructions reviewed with patient and/or family. Voiced understanding. FELICIA BERGER Aug 02, 2021 22:55
[2021-08-02] MEDS ORDERED: TETANUS,DIPTH,PERTUSS P/F (BOOSTRIX) 0.5 ML VIAL IM ONE (23:00)
== END 2021-08-02 23:11 | disposition home or self-care (01) ==
LOC: EDUNIT# 22:33 → ER 22:34
DX: S06.0X0A Concussion without loss of consciousness, initial encounter (principal); S01.01XA Laceration without foreign body of scalp, initial encounter; I10 Essential (primary) hypertension; Z23 Encounter for immunization; W01.0XXA Fall on same level from slipping, tripping and stumbling without subsequent striking against object, initial encounter
CPT/HCPCS: 12002; 90715

== ENCOUNTER 2021-08-11 14:04 | Emergency (ER) | payer BC ==
[~2021-08-11] VITALS: Ht 170 cm; Wt 109.0 kg
[~2021-08-11 14:04] MED LIST changes: +DULO60CA59
[2021-08-11 14:30] VITALS: BP 130/86
== END 2021-08-11 14:30 | disposition home or self-care (01) ==
LOC: EDUNIT# 14:04 → ER 14:05
DX: Z48.02 Encounter for removal of sutures (principal)